=== PATIENT | male | born 2000 | race African-American/Black ===

== ENCOUNTER 2022-06-02 02:37 | Emergency (ER) | payer SELFPAY ==
[~2022-06-02] VITALS: Ht 185.4 cm; Wt 106.6 kg
[2022-06-02] MEDS ORDERED: FAMOTIDINE 20 MG/2 ML VIAL IV STA (03:27)
[2022-06-02] MEDS ORDERED: ONDANSETRON HCL INJ 2MG/ML 2ML 2 MG/ML VIAL IV STA (03:28)
[2022-06-02] MEDS ORDERED: SODIUM CHLORIDE 0.9% 1000ML 1,000 ML IV SCH (03:30)
[2022-06-02] MEDS ORDERED: PANTOPRAZOLE SO40 MG PO (04:33)
[2022-06-02] MEDS ORDERED: FAMOTIDINE40 MG PO (04:33)
[2022-06-02] MEDS ORDERED: PROMETHAZINE HC25 M1 PO (04:34)
[2022-06-02] MEDS ORDERED: ONDANSETRON HCL INJ 2MG/ML 2ML 2 MG/ML VIAL ONE (04:43)
[2022-06-02] MEDS ORDERED: FAMOTIDINE 20 MG/2 ML VIAL IV ONE (04:43)
[2022-06-02 05:25] VITALS: BP 142/90
== END 2022-06-02 05:25 | disposition home or self-care (01) ==
LOC: FSED 02:45
DX: R11.2 Nausea with vomiting, unspecified (principal); K29.70 Gastritis, unspecified, without bleeding
CPT/HCPCS: 80048; 80076; 81003; 85025; 96374; 96376; 99283; J2405

== ENCOUNTER 2022-06-07 00:36 | Emergency (ER) | payer SELFPAY ==
[~2022-06-07] VITALS: Ht 185.4 cm; Wt 106.6 kg
[~2022-06-07 00:36] MED LIST: FAMOTIDINE40 MG PO; PANTOPRAZOLE SO40 MG PO; PROMETHAZINE HC25 M1 PO
[2022-06-07] MEDS ORDERED: MUCINEX DM ER1 EACH PO (01:29)
[2022-06-07] MEDS ORDERED: PROAIR HFA INH8.5 GM INH (01:29)
[2022-06-07] MEDS ORDERED: IBUPROFEN800 MG PO (01:29)
[2022-06-07] MEDS ORDERED: BENZONATATE100 MG PO (01:29)
== END 2022-06-07 01:44 | disposition home or self-care (01) ==
LOC: FSED 00:46
DX: R05.9 Cough, unspecified (principal); J20.9 Acute bronchitis, unspecified; F41.9 Anxiety disorder, unspecified
CPT/HCPCS: 71046; 87400; 99283